=== PATIENT | female | born 1985 | race Caucasian/White ===

== ENCOUNTER 2017-12-02 20:28 | Inpatient (IN) | payer SELFPAY, MEDICAID, OTHER ==
[2017-12-02 21:33] LABS: BASO # 0.1 10^3/uL (0.0-0.2); BASO % 0.6 % (0.0-1.0); EOS # 0.1 10^3/uL (0.0-0.50); EOS % 0.6 % (0.0-3.0); HEMOGLOBIN 10.5 g/dl (12.0-15.5); IMMATURE GRANULOCYTE % 0.6 % (0-3.0); LYMPH # 1.8 10^3/uL (1.5-4.5); LYMPH % 15.4 % (24.0-44.0); MEAN CORPUSCULAR HEMOGLOBIN 22.1 pg (27.0-33.0); MEAN CORPUSCULAR HGB CONC 28.4 g/dl (32.0-36.5); MEAN CORPUSCULAR VOLUME 77.7 fl (80.0-96.0); MONO # 0.6 10^3/uL (0.0-0.8); MONO % 4.9 % (0.0-5.0); NEUTROPHILS # 9.3 10^3/uL (1.8-7.7); NEUTROPHILS % 77.9 % (36.0-66.0); PLATELET COUNT, AUTOMATED 309 10^3/uL (150-450); RED BLOOD COUNT 4.76 10^6/uL (4.00-5.40); RED CELL DISTRIBUTION WIDTH 17.1 % (11.5-14.5)
[2017-12-02] MEDS: niCARdipine IV 40 MG in APPROPRIATE DILUENT 1 EA IV (21:34)
[2017-12-02 22:22] LABS: ANION GAP 8 MEQ/L (8-16); BLOOD UREA NITROGEN 9 MG/DL (7-18); CALCIUM LEVEL 8.9 MG/DL (8.5-10.1); CARBON DIOXIDE LEVEL 23 MEQ/L (21-32); CHLORIDE LEVEL 108 MEQ/L (98-107); GLOMERULAR FILTRATION RATE > 60.0 (>60); GLUCOSE, FASTING 88 MG/DL (70-100); POTASSIUM SERUM 4.8 MEQ/L (3.5-5.1); SODIUM LEVEL 139 MEQ/L (136-145); THYROID STIMULATING HORMONE 0.883 uIU/ML (0.358-3.740)
[2017-12-02] MEDS: MORPHINE 2 MG/ML 1ML SYRINGE (J2270) IV (23:30)
[2017-12-02] MEDS: ONDANSETRON 4MG/2ML VIAL (J2405) IV (23:30)
[2017-12-03 00:15] LABS: AMPHETAMINES LEVEL URINE NEGATIVE (NEGATIVE); BARBITURATES URINE NEGATIVE (NEGATIVE); BENZODIAZEPINES URINE NEGATIVE (NEGATIVE); CANNABINOIDS URINE POSITIVE (NEGATIVE); COCAINE METABOLITE URINE NEGATIVE (NEGATIVE); METHADONE URINE NEGATIVE (NEGATIVE); OPIATES URINE NEGATIVE (NEGATIVE); PHENCYCLIDINE URINE NEGATIVE (NEGATIVE)
[2017-12-03] MEDS: SUMAtriptan SUCCINATE 25 MG TAB PO ×2 (02:31→10:29)
[2017-12-03 03:47] LABS: MAGNESIUM LEVEL 1.9 MG/DL (1.8-2.4); TROPONIN I < 0.02 NG/ML (< 0.10)
[2017-12-03] MEDS: ACETAMINOPHEN TAB 650MG DOSE (2X325MG) PO (04:03)
[2017-12-03 05:25] LABS: TROPONIN I < 0.02 NG/ML (< 0.10)
[2017-12-03] MEDS: IBUPROFEN 800 MG TAB PO ×2 (07:42→15:53)
[2017-12-03] MEDS: ENOXAPARIN 40 MG/0.4 ML SYRINGE (J1650) SC (09:55)
[2017-12-03] MEDS: niCARdipine IV 40 MG in APPROPRIATE DILUENT 1 EA IV (09:57)
[2017-12-03 10:42] LABS: APPEARANCE, URINE CLEAR (CLEAR); BACTERIA, URINE AUTO NEGATIVE (NEGATIVE); BILIRUBIN, URINE AUTO NEGATIVE (NEGATIVE); BLOOD, URINE BLOOD NEGATIVE (NEGATIVE); COLOR, URINE STRAW (YELLOW); GLUCOSE, URINE (UA) AUTO NEGATIVE (NEGATIVE); KETONE, URINE AUTO NEGATIVE (NEGATIVE); LEUKOCYTE ESTERASE, URINE AUTO NEGATIVE (NEGATIVE); MUCUS, URINE SMALL (NEGATIVE); NITRITE, URINE AUTO NEGATIVE (NEGATIVE); PROTEIN, URINE AUTO NEGATIVE (NEGATIVE); RBC, URINE AUTO 4 /HPF (0-3); SPECIFIC GRAVITY URINE AUTO 1.006 (1.002-1.035); SQUAMOUS EPITHELIAL CELL UR AU 0 /HPF (0-6); UROBILINOGEN, URINE AUTO 0.2 mg/dL (0.0-2.0); WBC, URINE AUTO 0 /HPF (0-3)
[2017-12-03] MEDS: LISINOPRIL 20 MG TAB PO (20:01)
[2017-12-04] MEDS: IBUPROFEN 800 MG TAB PO ×3 (00:07→18:26)
[2017-12-04 04:28] LABS: HEMATOCRIT 39.5 % (36.0-47.0); HEMOGLOBIN 11.7 g/dl (12.0-15.5); MEAN CORPUSCULAR HEMOGLOBIN 22.5 pg (27.0-33.0); MEAN CORPUSCULAR HGB CONC 29.6 g/dl (32.0-36.5); PLATELET COUNT, AUTOMATED 386 10^3/uL (150-450); RED CELL DISTRIBUTION WIDTH 17.4 % (11.5-14.5); WHITE BLOOD COUNT 12.2 10^3/uL (4.0-10.0)
[2017-12-04 04:48] LABS: ANION GAP 9 MEQ/L (8-16); BLOOD UREA NITROGEN 18 MG/DL (7-18); CALCIUM LEVEL 8.8 MG/DL (8.5-10.1); CARBON DIOXIDE LEVEL 25 MEQ/L (21-32); CHLORIDE LEVEL 104 MEQ/L (98-107); CREATININE FOR GFR 0.96 MG/DL (0.55-1.30); GLOMERULAR FILTRATION RATE > 60.0 (>60); GLUCOSE, FASTING 100 MG/DL (70-100); MAGNESIUM LEVEL 2.4 MG/DL (1.8-2.4); POTASSIUM SERUM 3.8 MEQ/L (3.5-5.1); SODIUM LEVEL 138 MEQ/L (136-145)
[2017-12-04] MEDS: CALCIUM CARBONATE 500 MG CHEW U/D PO (09:45)
[2017-12-04] MEDS: ENOXAPARIN 40 MG/0.4 ML SYRINGE (J1650) SC (09:46)
[2017-12-04] MEDS: SUMAtriptan SUCCINATE 25 MG TAB PO ×2 (09:46→18:27)
[2017-12-04] MEDS: MORPHINE 4 MG/ML 1ML VIAL/SYRINGE (J2270) IV (17:34)
[2017-12-04] MEDS: CYCLOBENZAPRINE 10 MG TAB PO (17:34)
[2017-12-04] MEDS: ACETAMINOPHEN TAB 650MG DOSE (2X325MG) PO (20:22)
[2017-12-04] MEDS: LISINOPRIL 20 MG TAB PO (20:22)
[2017-12-04] MEDS: KETOROLAC 30 MG/ML VIAL (J1885) IV (21:51)
[2017-12-05] MEDS: EXCEDRIN MIGRAINE TABLET PO (01:36)
[2017-12-05] MEDS: IBUPROFEN 800 MG TAB PO ×2 (04:36→13:20)
[2017-12-05 06:44] LABS: HEMATOCRIT 40.1 % (36.0-47.0); HEMOGLOBIN 11.7 g/dl (12.0-15.5); MEAN CORPUSCULAR HEMOGLOBIN 22.3 pg (27.0-33.0); MEAN CORPUSCULAR HGB CONC 29.2 g/dl (32.0-36.5); MEAN CORPUSCULAR VOLUME 76.4 fl (80.0-96.0); PLATELET COUNT, AUTOMATED 360 10^3/uL (150-450); RED BLOOD COUNT 5.25 10^6/uL (4.00-5.40); RED CELL DISTRIBUTION WIDTH 17.1 % (11.5-14.5); WHITE BLOOD COUNT 12.8 10^3/uL (4.0-10.0)
[2017-12-05 07:01] LABS: ANION GAP 9 MEQ/L (8-16); BLOOD UREA NITROGEN 22 MG/DL (7-18); CALCIUM LEVEL 8.6 MG/DL (8.5-10.1); CARBON DIOXIDE LEVEL 24 MEQ/L (21-32); CHLORIDE LEVEL 106 MEQ/L (98-107); CREATININE FOR GFR 0.83 MG/DL (0.55-1.30); GLOMERULAR FILTRATION RATE > 60.0 (>60); GLUCOSE, FASTING 88 MG/DL (70-100); MAGNESIUM LEVEL 2.2 MG/DL (1.8-2.4); POTASSIUM SERUM 3.8 MEQ/L (3.5-5.1); SODIUM LEVEL 139 MEQ/L (136-145)
[2017-12-05] MEDS: ENOXAPARIN 40 MG/0.4 ML SYRINGE (J1650) SC (09:00)
[2017-12-05] MEDS: LISINOPRIL 20 MG TAB PO ×2 (09:40→20:44)
[2017-12-05] MEDS: ONDANSETRON 4MG/2ML VIAL (J2405) IV (09:59)
[2017-12-05] MEDS ORDERED: ISOVUE-370 76% 100ML VIAL (Q9967) As Ordered (09:59)
[2017-12-05] MEDS: diphenhydrAMINE INJ 50MG/ML VIAL (J1200) IV (10:00)
[2017-12-05 11:01] LABS: CONTROL LINE UCG INT CTR LINE PRESENT; URINE PREG TEST NEGATIVE (NEGATIVE)
[2017-12-05] MEDS: MAG SULF 1GM/100ML (MAG RUN) 1 GM in APPROPRIATE DILUENT 1 EA IV (13:08)
[2017-12-05] MEDS: VALPROATE SOD INJ 1,000 MG in D5W 50 ML IV (13:08)
[2017-12-05] MEDS: ACETAMINOPHEN TAB 650MG DOSE (2X325MG) PO (13:20)
[2017-12-05] MEDS: methylPREDNISolone INJ 125 MG/2 ML VIAL (J2930) IV (15:19)
[2017-12-05] MEDS: diazePAM 2 MG TAB PO ×2 (15:19→20:43)
[2017-12-05] MEDS: MORPHINE 4 MG/ML 1ML VIAL/SYRINGE (J2270) IV (18:52)
[2017-12-05] MEDS: DIVALPROEX 500 MG TAB PO (20:43)
[2017-12-06] MEDS: diazePAM 2 MG TAB PO ×4 (00:36→18:41)
[2017-12-06] MEDS: ONDANSETRON 4MG/2ML VIAL (J2405) IV (04:19)
[2017-12-06] MEDS: diphenhydrAMINE INJ 50MG/ML VIAL (J1200) IV (04:19)
[2017-12-06 06:15] LABS: HEMATOCRIT 39.8 % (36.0-47.0); HEMOGLOBIN 11.6 g/dl (12.0-15.5); MEAN CORPUSCULAR HEMOGLOBIN 22.3 pg (27.0-33.0); MEAN CORPUSCULAR HGB CONC 29.1 g/dl (32.0-36.5); MEAN CORPUSCULAR VOLUME 76.4 fl (80.0-96.0); PLATELET COUNT, AUTOMATED 357 10^3/uL (150-450); RED BLOOD COUNT 5.21 10^6/uL (4.00-5.40); RED CELL DISTRIBUTION WIDTH 16.9 % (11.5-14.5); WHITE BLOOD COUNT 19.5 10^3/uL (4.0-10.0)
[2017-12-06 06:53] LABS: ANION GAP 10 MEQ/L (8-16); BLOOD UREA NITROGEN 14 MG/DL (7-18); CALCIUM LEVEL 8.5 MG/DL (8.5-10.1); CARBON DIOXIDE LEVEL 18 MEQ/L (21-32); CHLORIDE LEVEL 105 MEQ/L (98-107); CREATININE FOR GFR 0.73 MG/DL (0.55-1.30); GLOMERULAR FILTRATION RATE > 60.0 (>60); GLUCOSE, FASTING 106 MG/DL (70-100); MAGNESIUM LEVEL 2.2 MG/DL (1.8-2.4); POTASSIUM SERUM 4.6 MEQ/L (3.5-5.1); SODIUM LEVEL 133 MEQ/L (136-145)
[2017-12-06] MEDS: LISINOPRIL 20 MG TAB PO ×2 (09:00→20:08)
[2017-12-06] MEDS: DIVALPROEX 500 MG TAB PO ×2 (09:00→20:07)
[2017-12-06] MEDS: methylPREDNISolone INJ 125 MG/2 ML VIAL (J2930) IV (09:00)
[2017-12-06] MEDS: amLODIPine 5 MG TAB PO (09:00)
[2017-12-06] MEDS: ENOXAPARIN 40 MG/0.4 ML SYRINGE (J1650) SC (09:00)
[2017-12-06] MEDS: EXCEDRIN MIGRAINE TABLET PO ×2 (09:36→20:07)
[2017-12-06] MEDS ORDERED: PROHANCE 279.3MG/ML 5ML VIAL (A9576) As Ordered (11:02)
[2017-12-06] MEDS ORDERED: PROHANCE 279.3MG/ML 15ML VIAL (A9576) As Ordered (11:03)
[2017-12-06] MEDS ORDERED: MIRALAX *UNIT DOSE* 17GM PACKET PO (14:30)
[2017-12-06] MEDS: IBUPROFEN 800 MG TAB PO (18:41)
[2017-12-06] MEDS: AMITRIPTYLINE 25 MG TAB PO (20:07)
[2017-12-06] MEDS: DOCUSATE SODIUM 100 MG CAP PO (20:08)
[2017-12-07] MEDS: EXCEDRIN MIGRAINE TABLET PO ×2 (05:39→20:16)
[2017-12-07 06:39] LABS: HEMATOCRIT 36.5 % (36.0-47.0); HEMOGLOBIN 10.7 g/dl (12.0-15.5); MEAN CORPUSCULAR HEMOGLOBIN 22.6 pg (27.0-33.0); MEAN CORPUSCULAR HGB CONC 29.3 g/dl (32.0-36.5); PLATELET COUNT, AUTOMATED 329 10^3/uL (150-450); RED BLOOD COUNT 4.74 10^6/uL (4.00-5.40); RED CELL DISTRIBUTION WIDTH 17.2 % (11.5-14.5); WHITE BLOOD COUNT 17.6 10^3/uL (4.0-10.0)
[2017-12-07 07:07] LABS: ANION GAP 5 MEQ/L (8-16); BLOOD UREA NITROGEN 18 MG/DL (7-18); CALCIUM LEVEL 8.4 MG/DL (8.5-10.1); CARBON DIOXIDE LEVEL 29 MEQ/L (21-32); CHLORIDE LEVEL 108 MEQ/L (98-107); CREATININE FOR GFR 0.76 MG/DL (0.55-1.30); GLOMERULAR FILTRATION RATE > 60.0 (>60); GLUCOSE, FASTING 98 MG/DL (70-100); MAGNESIUM LEVEL 2.1 MG/DL (1.8-2.4); POTASSIUM SERUM 3.7 MEQ/L (3.5-5.1); SODIUM LEVEL 142 MEQ/L (136-145)
[2017-12-07] MEDS: methylPREDNISolone INJ 125 MG/2 ML VIAL (J2930) IV (08:45)
[2017-12-07] MEDS: DOCUSATE SODIUM 100 MG CAP PO ×2 (08:46→20:16)
[2017-12-07] MEDS: ENOXAPARIN 40 MG/0.4 ML SYRINGE (J1650) SC (08:46)
[2017-12-07] MEDS: DIVALPROEX 500 MG TAB PO ×2 (08:46→20:16)
[2017-12-07] MEDS: LISINOPRIL 20 MG TAB PO ×2 (08:46→20:20)
[2017-12-07] MEDS: amLODIPine 5 MG TAB PO (08:46)
[2017-12-07] MEDS ORDERED: PROHANCE 279.3MG/ML 5ML VIAL (A9576) As Ordered (09:16)
[2017-12-07] MEDS: IBUPROFEN 800 MG TAB PO (11:57)
[2017-12-07] MEDS: AMITRIPTYLINE 25 MG TAB PO (20:17)
[2017-12-08 05:58] LABS: HEMATOCRIT 33.6 % (36.0-47.0); MEAN CORPUSCULAR HEMOGLOBIN 22.9 pg (27.0-33.0); MEAN CORPUSCULAR HGB CONC 29.8 g/dl (32.0-36.5); MEAN CORPUSCULAR VOLUME 76.9 fl (80.0-96.0); PLATELET COUNT, AUTOMATED 281 10^3/uL (150-450); RED BLOOD COUNT 4.37 10^6/uL (4.00-5.40); RED CELL DISTRIBUTION WIDTH 17.4 % (11.5-14.5); WHITE BLOOD COUNT 16.2 10^3/uL (4.0-10.0)
[2017-12-08 06:26] LABS: ANION GAP 11 MEQ/L (8-16); BLOOD UREA NITROGEN 17 MG/DL (7-18); CALCIUM LEVEL 8.4 MG/DL (8.5-10.1); CARBON DIOXIDE LEVEL 25 MEQ/L (21-32); CHLORIDE LEVEL 108 MEQ/L (98-107); CREATININE FOR GFR 0.63 MG/DL (0.55-1.30); GLOMERULAR FILTRATION RATE > 60.0 (>60); GLUCOSE, FASTING 84 MG/DL (70-100); MAGNESIUM LEVEL 2.2 MG/DL (1.8-2.4); POTASSIUM SERUM 4.3 MEQ/L (3.5-5.1); SODIUM LEVEL 144 MEQ/L (136-145)
[2017-12-08] MEDS: DOCUSATE SODIUM 100 MG CAP PO (07:56)
[2017-12-08] MEDS: DIVALPROEX 500 MG TAB PO (07:56)
[2017-12-08] MEDS: amLODIPine 5 MG TAB PO (07:57)
[2017-12-08] MEDS: LISINOPRIL 20 MG TAB PO (07:57)
[2017-12-08] MEDS: EXCEDRIN MIGRAINE TABLET PO (07:57)
[2017-12-08] MEDS: ENOXAPARIN 40 MG/0.4 ML SYRINGE (J1650) SC (07:58)
[2017-12-08] MEDS: methylPREDNISolone INJ 125 MG/2 ML VIAL (J2930) IV (07:58)
== END 2017-12-08 12:50 | disposition home or self-care (01) | DRG 199 ==
LOC: M MSPAV 12-05 01:40 → M ED INP 12-03 02:05 → M ED 20:28 → M ICU 12-03 03:02
DX: I16.1 Hypertensive emergency (principal); I67.4 Hypertensive encephalopathy; I50.32 Chronic diastolic (congestive) heart failure; G43.511 Persistent migraine aura without cerebral infarction, intractable, with status migrainosus; F17.210 Nicotine dependence, cigarettes, uncomplicated; R63.4 Abnormal weight loss; D35.2 Benign neoplasm of pituitary gland

== ENCOUNTER → 2017-12-31 | Outpatient (REF) | payer OTHER ==
[2017-12-31 16:32] LABS: FREE T4 0.85 NG/DL (0.76-1.46)
== END ==
LOC: M LABDRAW1 15:42
DX: D49.7 Neoplasm of unspecified behavior of endocrine glands and other parts of nervous system (principal)
CPT/HCPCS: 84146

== ENCOUNTER → 2020-09-12 | Outpatient (CLI) | payer OTHER ==
[~2020-09-12] MED LIST: ACET65TA; AMIT25TA17 PO; AMLO1TAB24 PO; CEFT500T; DIAZ2TAB PO; LISI20TA33 PO; No Historical Meds; PRED10TA2 PO; ZITH250T
--- NOTE | 2020-09-12 15:06 | REP ---
INDICATION: PAIN COMPARISON: None. TECHNIQUE: AP, lateral, bilateral oblique views right hand. FINDINGS: Osseous structures, joint spaces, and surrounding soft tissues are essentially age-appropriate. No overt osteoarthritic or inflammatory arthritic changes are appreciated. No evidence for acute or healed injury. IMPRESSION: Essentially age-appropriate right hand radiographs. <Electronically signed by Isaiah Ayoub > 09/12/20 [id number]
--- NOTE | 2020-09-12 15:07 | REP ---
INDICATION: PAIN COMPARISON: None. TECHNIQUE: AP, lateral, bilateral oblique views left foot. FINDINGS: Osseous structures, joint spaces, and surrounding soft tissues are essentially age-appropriate. No evidence for acute fracture or dislocation. Lateral view demonstrates small calcaneal heel spur. IMPRESSION: Age-related degenerative changes.. Small calcaneal heel spur. <Electronically signed by Isaiah Ayoub > 09/12/20 [id number]
== END ==
LOC: M WUC 14:37
PROVIDERS: ATTEND Physician Assistant
DX: M25.541 Pain in joints of right hand (principal); M77.32 Calcaneal spur, left foot

== ENCOUNTER → 2020-10-30 | Outpatient (CLI) | payer OTHER ==
[~2020-10-30] MED LIST changes: +GASTROGRAFIN SOLUTION 30ML (Q9963) As Ordered ONE; +ISOVUE-370 76% 100ML VIAL As Ordered ONE
--- NOTE | 2020-10-30 15:11 | REP ---
INDICATION: R19.4 CHANGE IN BOWEL HABITS. COMPARISON: 06/06/2014 a noncontrast enhanced examination and the latest prior. TECHNIQUE: Standard helical technique after the administration of 100 cc Isovue 370 intravenously and oral bowel preparatory contrast administration. FINDINGS: There is mild intrahepatic ductal dilatation consistent with the patient's post cholecystectomy state. There are no enhancing hepatic lesions. The spleen, pancreas, adrenal glands, and kidneys are essentially unchanged. Sub cm sized bilateral renal cortical cysts are identified. The abdominal aorta and para-aortic regions within normal limits. The bowel loops and the mesenteries are within normal limits. There is no evidence of a mass or adenopathy. There is no free fluid or free air. The osseous structures are within normal limits. IMPRESSION: CT findings are within normal limits. A negative CT scan does not obviate further investigation of the colon with colonoscopy. <Electronically signed by Jesus Alberto Vieira > 10/30/20 [id number]
== END ==
LOC: M RAD 12:19
PROVIDERS: ATTEND Internal Medicine Gastroenterology
DX: R19.4 Change in bowel habit (principal)
CPT/HCPCS: 74177; Q9963; Q9967

== ENCOUNTER → 2021-01-17 | Outpatient (CLI) | payer OTHER ==
[~2021-01-17] MED LIST changes: -GASTROGRAFIN SOLUTION 30ML (Q9963) As Ordered ONE; +IRON65TA2 PO; -ISOVUE-370 76% 100ML VIAL As Ordered ONE; +TUMS500C PO
[2021-01-17 10:56] LABS: ALBUMIN 3.8 GM/DL (3.2-5.2); ALT/SGPT 25 U/L (12-78); BILIRUBIN,TOTAL 0.5 MG/DL (0.2-1.0); BLOOD UREA NITROGEN 10 MG/DL (7-18); CALCIUM LEVEL 9.3 MG/DL (8.5-10.1); CARBON DIOXIDE LEVEL 22 MEQ/L (21-32); CHLORIDE LEVEL 108 MEQ/L (98-107); CORTISOL AM 1.6 UG/DL (4.3-22.4); CREATININE FOR GFR 0.72 MG/DL (0.55-1.30); FREE T4 0.95 NG/DL (0.76-1.46); GLOMERULAR FILTRATION RATE > 60.0 (>60); GLUCOSE, FASTING 110 MG/DL (70-100); POTASSIUM SERUM 4.5 MEQ/L (3.5-5.1); PROLACTIN 8.8 NG/ML; SODIUM LEVEL 139 MEQ/L (136-145); TOTAL PROTEIN 7.5 GM/DL (6.4-8.2)
[2021-01-17 10:57] LABS: FOLLICLE STIMULATING HORMONE 5.6 mIU/mL; LUTEINIZING HORMONE 5.3 mIU/mL
[2021-01-18 21:07] LABS: ADRENOCORTICOTROPHIC HORMONE 5.1 pg/mL (7.2-63.3)
== END ==
LOC: M WUC 08:34
PROVIDERS: ATTEND Physician Assistant
DX: D35.2 Benign neoplasm of pituitary gland (principal); E74.39 Other disorders of intestinal carbohydrate absorption

== ENCOUNTER → 2021-02-18 | Outpatient (CLI) | payer OTHER ==
[~2021-02-18] MED LIST changes: +PROHANCE 279.3MG/ML 15ML VIAL As Ordered ONE
--- NOTE | 2021-02-19 14:58 | REPVR ---
PROCEDURE INFORMATION: Exam: MR Head Without and With Contrast, Sella Exam date and time: 02/18/2021 6:06 PM Age: 36 years old Clinical indication: Condition or disease; Other: Pituitary adenoma; Additional info: Pituitary tumor TECHNIQUE: Imaging protocol: MR of the head without and with intravenous contrast. Exam focused on the sella. Contrast material: PROHANCE; Contrast volume: 10 ml; Contrast route: INTRAVENOUS (IV); COMPARISON: 1. MRI-Brain W/O FOLL BY WITH 12/07/2017 9:[address] Head without contrast 12/05/2017 10:49:43 AM 3. MRI-Brain without Contrast 12/02/2017 10:36:29 PM FINDINGS: Brain: Examination of the brain parenchyma demonstrates normal morphology and signal intensity.No acute infarction, midline shift or acute hemorrhage is seen. No acute intracranial abnormality is identified.There is no abnormal diffusion weighted signal intensity to suggest an acute ischemic event.The cortical ware / white matter interfaces are preserved throughout the brain.Intracranial flow voids are well maintained. Cerebral ventricles: The ventricular system is not dilated and is appropriate for the patient's age. Paranasal sinuses: The visualized paranasal sinuses are clear. There are no air fluid levels to suggest acute sinusitis. Mastoid air cells: The visualized mastoid air cells are clear. Orbital cavity: The orbits are unremarkable. Pituitary gland and sella: Examination reveals significant interval decrease in the size of the hypoenhancing pituitary adenoma in the right half of the pituitary gland since the prior examination. This currently measures approximately 5 x 5 x 4 mm in dimensions and previously measuring 14 x 13 x 13 mm in dimensions. No suprasellar extension is seen on the current study. There is deviation of the pituitary stalk towards the left. There is no extension into the cavernous sinuses. Bones/joints: Unremarkable. IMPRESSION: 1. Examination reveals significant interval decrease in the size of the hypoenhancing pituitary adenoma in the right half of the pituitary gland since the prior examination. This currently measures approximately 5 x 5 x 4 mm in dimensions and previously measuring 14 x 13 x 13 mm in dimensions. No suprasellar extension is seen on the current study. There is deviation of the pituitary stalk towards the left. There is no extension into the cavernous sinuses. 2. No acute infarction, acute hemorrhage or midline shift is seen. Electronically signed by: Bakari Burks On 02/19/2021 14:57:34 PM
== END ==
LOC: M RAD 16:47
PROVIDERS: ATTEND Physician Assistant
DX: D35.2 Benign neoplasm of pituitary gland (principal)
CPT/HCPCS: 70553; A9576

== ENCOUNTER → 2021-03-19 | Outpatient (CLI) | payer OTHER ==
[~2021-03-19] MED LIST changes: -PROHANCE 279.3MG/ML 15ML VIAL As Ordered ONE
== END ==
LOC: M LABSMTC 11:19
PROVIDERS: ATTEND Anesthesiology
DX: Z01.812 Encounter for preprocedural laboratory examination (principal); Z20.822 Contact with and (suspected) exposure to COVID-19

== ENCOUNTER → 2021-07-29 | Outpatient (CLI) | payer OTHER | LOC: M WHC 15:17 | PROVIDERS: ATTEND Internal Medicine | DX: N92.0 Excessive and frequent menstruation with regular cycle (principal); R10.2 Pelvic and perineal pain ==

== ENCOUNTER → 2024-10-12 | Outpatient (CLI) | payer OTHER ==
[~2024-10-12] MED LIST changes: -AMIT25TA17 PO; +AMIT25TA19 PO
== END ==
LOC: M WUC 14:01
PROVIDERS: ATTEND Physician Assistant
DX: M79.672 Pain in left foot (principal); M25.562 Pain in left knee